=== PATIENT | male | born 1960 | race Caucasian/White ===

== ENCOUNTER → 2018-12-06 | Outpatient (CLI) | payer OTHER ==
[~2018-12-06] MED LIST: ISOVUE-370 76% 100ML VIAL (Q9967) As Ordered ONE
--- NOTE | 2018-12-06 20:31 | REP ---
CT angiography of the abdomen with IV contrast: History: 58-year-old with concern for dilation of the aorta on prior echocardiogram. CT abdominal aorta was requested and performed. CT contrast dose: 100 ml of intravenous Isovue 370. CT findings: Nonvascular findings: There is left colonic diverticulosis in the in the descending and sigmoid segments of the colon. There is some mild mural thickening in the distal esophagus raising question of reflux esophagitis. Vascular findings: The lower thoracic aorta is included in the imaging field of view and appears somewhat tortuous but non-aneurysmal. The descending aorta measures 2.8 cm in greatest diameter. The celiac and superior mesenteric arteries are unremarkable. There is an accessory right renal artery. This feeds the lower pole. There is also a tiny accessory upper pole left renal artery. The infrarenal abdominal aorta is normal in caliber. It is somewhat tortuous. Inferior mesenteric artery origin is unremarkable. The common and external iliac arteries are ectatic and tortuous as well. No aneurysm is seen. The common iliac artery on the right measures 1.6 and that on the left measures 1.3 cm in diameter. No stenosis is seen. Mild calcific plaquing. Impression: Tortuous iliac arteries. Mild plaquing. Duplicated renal arteries bilaterally. No stenosis seen. No abdominal or lower thoracic aortic aneurysm is seen. If the thoracic aorta may be evaluated, CT angiography of the chest and thoracic aorta could be performed. Incidental note is made of thickening of the distal esophagus circumferentially question reflux esophagitis. Consider esophagram. Electronically Signed by Ranjith Peace MD 12/07/2018 06:37 A
== END ==
LOC: M RAD 07:38
PROVIDERS: ATTEND Internal Medicine
DX: I77.1 Stricture of artery (principal); K57.30 Diverticulosis of large intestine without perforation or abscess without bleeding; K22.9 Disease of esophagus, unspecified
CPT/HCPCS: 74175; Q9967

== ENCOUNTER 2019-03-21 12:49 | Day surgery (SDC) | payer OTHER ==
[~2019-03-21] VITALS: Ht 177.8 cm; Wt 94.8 kg
[~2019-03-21 12:49] MED LIST changes: +ASPI81TA26 PO; +D 101000 PO; -ISOVUE-370 76% 100ML VIAL (Q9967) As Ordered ONE; +LISI10TA4 PO; +MULTCAP PO; +NS 1,000 ML IV ONE; +OMEG10002 PO; +PANT40TA3 PO; +ZOLO50TA PO
[2019-03-21] MEDS ORDERED: ACET-683 PO (14:11)
[2019-03-21] MEDS ORDERED: fentaNYL 100 MCG/2 ML INJECTION (J3010) As Ordered ONE (15:02)
[2019-03-21] MEDS ORDERED: PROPOFOL 200 MG/20 ML VIAL As Ordered ONE (15:03)
--- NOTE | 2019-03-21 15:40 | ROOR ---
Patient Name: Agustin Ying Procedure Date: 03/21/2019 3:10 PM Date of : 1960 Age: 58 Room: [facility] Gender: Male Note Status: Finalized Procedure: Upper GI endoscopy Indications: Esophageal dysphagia, Abnormal cine-esophagram Providers: Brian MELVIN MD Referring MD: JOHN LOPEZ MD Requesting Provider: Medicines: Monitored Anesthesia Care Complications: No immediate complications. Procedure: Pre-Anesthesia Assessment: - The heart rate, respiratory rate, oxygen saturations, blood pressure, adequacy of pulmonary ventilation, and response to care were monitored throughout the procedure. The Endoscope was introduced through the mouth, and advanced to the second part of duodenum. The upper GI endoscopy was accomplished without difficulty. The patient tolerated the procedure well. Findings: The lumen of the esophagus was moderately dilated. No appreciable esophageal motility was noted. In addition, a hypertonic lower esophageal sphincter was found. There was moderate resistance to endoscope advancement into the stomach. The Z-line was regular. The gastroesophageal junction and cardia were normal on retroflexed view. The entire examined stomach was normal. The examined duodenum was normal. A TTS dilator was passed through the scope. Dilation with an 18-19-20 mm x 5.5 cm CRE balloon dilator was performed to 20 mm in the lower third of the esophagus. Impression: - Dilated/atonic esophageal body with persistent spasm of LES. The examination was suspicious for achalasia. - Normal stomach. - Normal examined duodenum. - Dilation to 20 mm performed in the lower third of the esophagus. - No specimens collected. Recommendation: - Full liquid diet. - Todays dilation may or may not provide temporary relief. - Perform routine esophageal Manometry at appointment to be scheduled. (I will make referral.) - (If Manometry confirms the condition of Achalasia, then you will need surgical repair.) Brian Melvin MD Brian MELVIN MD 03/21/2019 3:40:27 PM Electronically signed by Brian MELVIN MD Number of Addenda: 0 Note Initiated On: 03/21/2019 3:10 PM Estimated Blood Loss: Estimated blood loss: none. Estimated blood loss: none.
[2019-03-21 16:07] VITALS: BP 140/87
== END 2019-03-21 16:16 | disposition home or self-care (01) ==
LOC: M OPP 12:49
PROVIDERS: ATTEND Internal Medicine Gastroenterology
DX: K22.8 Other specified diseases of esophagus (principal); R13.14 Dysphagia, pharyngoesophageal phase; R93.3 Abnormal findings on diagnostic imaging of other parts of digestive tract; I10 Essential (primary) hypertension; Z79.82 Long term (current) use of aspirin; Z79.899 Other long term (current) drug therapy; Z80.0 Family history of malignant neoplasm of digestive organs
CPT/HCPCS: 43249; J3010

== ENCOUNTER → 2020-12-17 | Outpatient (CLI) | payer OTHER ==
[~2020-12-17] MED LIST changes: +ACET-683 PO; +LISI10TA22 PO; -LISI10TA4 PO; +METHACHOLINE KIT (J7674) INH ONE; -NS 1,000 ML IV ONE; +PANT40TA29 PO; -PANT40TA3 PO
--- NOTE | 2020-12-17 15:20 | PFTRPT ---
Height: 70.00 Inches Weight: 221.00 Lbs BSA: 2.18 Diagnosis: R06.02 DATE: 12/17/2020 ORDERED BY: Sarah Moser NP QUALITY: Study of excellent technical quality. PROCEDURE: Under protocol, methacholine was administered. At a dose of 0.25 mg or 1.375 CDUs, a 23% decline in the FEV1 was noted. PC of 0.16 is significant. Flow rates did return to baseline post bronchodilator administration. IMPRESSION: Positive methacholine challenge study. MTDD
== END ==
LOC: M CARPUL 14:39
PROVIDERS: ATTEND Nurse Practitioner Adult Health
DX: R06.02 Shortness of breath (principal)
CPT/HCPCS: 94070; J7674

== ENCOUNTER → 2021-01-21 | Outpatient (CLI) | payer OTHER ==
[~2021-01-21] MED LIST changes: -METHACHOLINE KIT (J7674) INH ONE
--- NOTE | 2021-01-21 11:17 | REP ---
INDICATION: ABN FINDINGS LUNG FIELD COMPARISON: None TECHNIQUE: Axial noncontrast images from the thoracic inlet to the upper abdomen with coronal and sagittal reformations. This CT examination was performed using the following dose reduction techniques: Automated exposure control, adjustment of mA and/or kv according to the patient's size, and use of iterative reconstruction technique. FINDINGS: Bilateral lung leon are relatively well aerated. Minimal age-related fibroatelectatic changes are identified without focal consolidation or effusion. Few small noncalcified nodules measure up to 3 mm (right middle lobe image 63). Tracheobronchial tree is patent. The mediastinum demonstrates relatively normal thoracic aorta, pulmonary vasculature and heart/pericardium. There is no evidence for mediastinal or hilar adenopathy. However, asymmetric left axillary adenopathy is suggested and requires clinical/physical correlation. There is nonspecific thickening to the mid/distal esophagus. IMPRESSION: 1. Few scattered noncalcified nodules up to 3 mm. Follow-up should be based on patient's risk factors and may warrant 12 month re-evaluation. 2. Left axillary adenopathy of uncertain significance or etiology. 3. Mild circumferential thickening to the mid/distal esophagus may warrant gastroenterology consultation and endoscopy. <Electronically signed by Jj Paul > 01/21/21 [id number]
== END ==
LOC: M RAD 10:21
PROVIDERS: ATTEND Nurse Practitioner Adult Health
DX: R91.8 Other nonspecific abnormal finding of lung field (principal)

== ENCOUNTER → 2022-01-20 | Outpatient (CLI) | payer OTHER | LOC: M RAD 09:08 | PROVIDERS: ATTEND Nurse Practitioner Adult Health | DX: R91.8 Other nonspecific abnormal finding of lung field (principal) ==